=== PATIENT | female | born 1940 | race Caucasian/White ===

== ENCOUNTER 2020-05-02 11:59 | Emergency (ER) | payer MEDICARE, BC, SELFPAY ==
[2020-05-02 12:10] VITALS: BP 231/96; PULSE 57; RESP 16; TEMP 36.8; O2SAT 100
--- NOTE | 2020-05-02 12:17 | ED.EYEPROB ---
HPI - Eye Problem General Chief complaint: Eye Problems Stated complaint: left eye red/swollen Source: patient Mode of arrival: ambulatory Limitations: no limitations History of Present Illness HPI Narrative: Flor Garcia is a 80 yo female with a PMH of HTN, who comes to express care with injection of left eye after rubbing it yesterday. She states her eye was itching and she was rubbing it with her fingernail, now has pain and photophobia to light, her vision is little blurry Her initial blood pressure was really elevated the patient states she is nervous about her eye and concerned about treatment-repeated blood pressure was lowered Related Data Home Medications Medication Instructions Recorded Confirmed aspirin [Adult Low Dose Aspirin] 81 mg PO DAILY 05/02/20 05/02/20 valsartan-hydrochlorothiazide 1 tablet PO DAILY 05/02/20 05/02/20 Allergies Allergy/AdvReac Type Severity Reaction Status Date / Time No Known Allergies Allergy Verified 05/02/20 12:22 Review of Systems Review of Systems: Narrative: CONSTITUTIONAL: Denies fever, chills, sweats. EYES: Mild visual changes, has redness, small amount discharge. ENT: Denies rhinorrhea, congestion, sore throat, otalgia. CARDIOVASCULAR: Denies chest pain, palpitations, edema. RESPIRATORY: Denies dyspnea, wheezing, cough GASTROINTESTINAL: Denies abdominal pain, nausea, vomiting, diarrhea. GENITOURINARY: Denies dysuria, hematuria, abnormal discharge SKIN: Denies rash or itching. NEUROLOGIC: Denies numbness, or focal weakness. PSYCHIATRIC: Denies anxiety or depression. [facility] Past Medical History Medical History HTN (hypertension) Family History Family History Other Hypertension Social History Social History (Updated 05/02/20 @ 12:36 by Jacinda Bernal CNP) Smoking status: Never smoker Alcohol intake: former Comments At time of signature, I agree with nursing past medical, surgical, social and family history. There is no relevant family history pertinent to the presenting complaint. Exam Narrative: Exam Narrative: GENERAL: This is a well-nourished, well-developed patient, in mild distress. HEAD: normocephalic, atraumatic. EYES: Sclera clear/whiteon R, injected and puffy on left. Vision is grossly intact. EARS: External ears normal, Hearing grossly intact. NOSE: External nose normal without nasal discharge, nares without redness, no rhinorrhea. THROAT: Mucous membranes moist, NECK: Neck supple, non-tender CARDIOVASCULAR: Regular rate and rhythm without murmurs, gallops, or rubs. RESPIRATORY: Clear to auscultation. Breath sounds equal bilaterally. No wheezes, rales, or rhonchi. GASTROINTESTINAL: Abdomen soft, non-tender, SKIN: warm, intact with no suspicious lesions or rash, good texture and turgor. NEURO: awake, alert, and oriented to person, place and time. There were no obvious focal neurologic abnormalities. Steady gait EXTREMITIES: Normal range of motion. Favors her right leg. Walks stiffly BACK: Nontender without deformity Course Course Emergency Course: Examination by with Salmeron lamp Started on polymyxin to left eye and warm soaks; sunglasses when outside Vital Signs Vital signs: Vital Signs Temperature 98.3 F 05/02/20 12:10 Pulse Rate 57 L 05/02/20 12:10 Respiratory Rate 16 05/02/20 12:10 Blood Pressure 231/96 H 05/02/20 12:10 Pulse Oximetry 100 05/02/20 12:10 Temperature 98.3 F 05/02/20 12:10 Pulse Rate 57 L 05/02/20 12:10 Respiratory Rate 16 05/02/20 12:10 Blood Pressure 184/96 H 05/02/20 12:34 Pulse Oximetry 100 05/02/20 12:10 Procedures Other Procedure Procedure 1: Other Procedure: Tetracaine drops placed in left eye and fluorescein stain used along with Salmeron lamp. Corneal abrasion to left side of pupil towards the outer canthus-I irrigated and discussed treatment with bry
[2020-05-02 12:34] VITALS: BP 184/96
== END 2020-05-02 12:47 | disposition home or self-care (01) ==
PROVIDERS: Emergency Provider Nurse Practitioner; PCP Internal Medicine
DX: S05.02XA Injury of conjunctiva and corneal abrasion without foreign body, left eye, initial encounter (principal); X58.XXXA Exposure to other specified factors, initial encounter; I10 Essential (primary) hypertension; Z79.82 Long term (current) use of aspirin
CPT/HCPCS: 99213; A9270; G0463

== ENCOUNTER 2023-01-29 10:18 | Emergency (ER) | payer MEDICARE, BC, SELFPAY ==
[2023-01-29 10:27] VITALS: BP 126/85; PULSE 83; RESP 18; TEMP 36.5; O2SAT 98
--- NOTE | 2023-01-29 11:03 | ED.SKABFB ---
HPI - Skin/Abscess/Foreign Bdy General Chief complaint: Upper Respiratory Infection Stated complaint: Insect Bite/Right Arm Time Seen by Provider: 01/29/23 11:03 Source: patient, RN notes reviewed and old records reviewed Mode of arrival: ambulatory Limitations: no limitations History of Present Illness HPI narrative: 82 year old female who presents to express care with complaints of redness irritation with swelling and warmth to right upper arm from spider bite which occurred last evening. Patient reports that area is extremely itchy, warm and is painful to touch. Patient has 9cm X15cm area of redness around bite augustine. Patient denies any difficulty with her breathing or any difficulty with swallowing. Patient reports that she has applied some topical ointment to upper red arm area. MD complaint: other (bug bite with surrounding swelling) Onset (ago): day(s) (1) Severity scale (1-10): 3 Treatments prior to arrival: other (topical ointment to red area on upper right arm) Related Data Home Medications Medication Instructions Recorded Confirmed aspirin 81 mg tablet,delayed 81 mg PO DAILY 05/02/20 05/02/20 release (Adult Low Dose Aspirin) valsartan 80 1 tablet PO DAILY 05/02/20 05/02/20 mg-hydrochlorothiazide 12.5 mg tablet Allergies Allergy/AdvReac Type Severity Reaction Status Date / Time No Known Allergies Allergy Verified 01/29/23 11:02 Review of Systems Review of Systems: CONSTITUTIONAL: Denies fever, chills, or sweats. CARDIOVASCULAR: Denies chest pain, palpitations, or edema. RESPIRATORY: Denies cough or dyspnea. SKIN: Reports redness swelling and warmth to tissue at right upper arm where he was bit by spider MUSCULOSKELETAL: Denies joint pain or myalgia. NEUROLOGIC: Denies headache, numbness, or weakness. All systems reviewed & are unremarkable except as noted in HPI and below PMFSH Past Medical History Medical History COVID-2019 HTN (hypertension) Family History Family History Other Hypertension Social History Social History (Updated 01/30/23 @ 09:32 by Maria M Coppola NP) Smoking status: Never smoker Alcohol intake: former Substance use type: does not use Living arrangements: with family Occupation/Education: retired Gender identity (if verbalized by the patient): Female Comments At time of signature, agree with nursing past medical, surgical, social and family history. There is no relevant family history pertinent to the presenting complaint Exam Narrative: GENERAL: Well-appearing, well-nourished, and in no acute distress. HEAD: Normocephalic, atraumatic. EYES: PERRLA, conjunctivae clear, and EOMI. ENT: Mucous membranes moist. Oropharynx without edema, erythema or lesions. NECK: Supple. No lymphadenopathy CHEST: Clear to auscultation. No respiratory distress.SAO2 98% on room air HEART: Regular rate and rhythm. SKIN: Warm, dry.? Patches of erythema and edema urrounding spider bite to right upper arm with area of redness measuring 9cm by 15 cm which is warm to touch and itchy NEURO:? Alert and oriented x3. PSYCH: Normal mood and affect Course Course Emergency Course: Patient is aware of diagnosis, understands and agrees to treatment plan.? Anticipatory guidance given.? Patient agrees to follow-up as directed and is aware of reasons to seek care at the emergency department. Portions of this record may have been created with voice recognition software Level of Care: Express Care Visit Vital Signs Vital signs: Vital Signs Temperature 36.5 C 01/29/23 10:27 Pulse Rate 83 01/29/23 10:27 Respiratory Rate 18 01/29/23 10:27 Blood Pressure 126/85 01/29/23 10:27 Pulse Oximetry 98 01/29/23 10:27 Oxygen Delivery Room Air 01/29/23 10:27 Temperature 36.5 C 01/29/23 10:27 Pulse Rate 83 01/29/23 10:27
== END 2023-01-29 11:28 | disposition home or self-care (01) ==
PROVIDERS: Emergency Provider Registered Nurse; PCP Internal Medicine
DX: L03.113 Cellulitis of right upper limb (principal); I10 Essential (primary) hypertension; Z86.16 Personal history of COVID-19; Z79.82 Long term (current) use of aspirin
CPT/HCPCS: 99213; G0463

== ENCOUNTER 2023-03-23 10:02 | Emergency (ER) | payer MEDICARE, BC, SELFPAY ==
[2023-03-23 10:12] VITALS: BP 153/70; PULSE 61; RESP 16; TEMP 36.5; O2SAT 98
--- NOTE | 2023-03-23 10:46 | ED.GENADULT ---
HPI - General Adult General Chief complaint: Urogenital-Female Stated complaint: painful urination / Thumb pain Source: patient and RN notes reviewed Mode of arrival: ambulatory History of Present Illness HPI narrative: 83 year old female presents to the [facility] today complaining of a possible urinary tract infection. Patient stated about 4 days ago she developed burning with urination. Patient also states when she is sitting down urinating she feels pain that starts near her bladder and radiates into her thumbs. Patient denies any abdominal pain, flank pain, back pain, fevers, are any blood in her urine. Related Data Home Medications Medication Instructions Recorded Confirmed aspirin 81 mg tablet,delayed 81 mg PO DAILY 05/02/20 03/23/23 release (Adult Low Dose Aspirin) valsartan 80 1 tablet PO DAILY 05/02/20 03/23/23 mg-hydrochlorothiazide 12.5 mg tablet Allergies Allergy/AdvReac Type Severity Reaction Status Date / Time No Known Allergies Allergy Verified 03/23/23 10:07 Review of Systems Review of Systems: CONSTITUTIONAL: Denies fever, chills, or sweats. EYES: Denies visual changes, redness, or discharge. ENT: Denies otalgia and sore throat CARDIOVASCULAR: Denies chest pain, palpitations, or edema. RESPIRATORY: Denies cough or dyspnea. GASTROINTESTINAL: Denies abdominal pain, nausea, vomiting, or diarrhea. GENITOURINARY: Positive for dysuria and negative for hematuria. SKIN: Denies rash or itching. MUSCULOSKELETAL: Denies back pain, joint pain, or myalgia. NEUROLOGIC: Denies headache, numbness, or weakness. Pertinent positives per HPI. [facility], [facility] Past Medical History Medical History COVID-19 2019 HTN (hypertension) Family History Family History Other Hypertension Social History Social History (Updated 01/30/23 @ 09:32 by Maria M Coppola NP) Smoking status: Never smoker Alcohol intake: former Substance use type: does not use Living arrangements: with family Occupation/Education: retired Gender identity (if verbalized by the patient): Female Comments At the time of my signature, I reviewed and agree with the nursing past medical, surgical, social, and family history. There is no relevant family history pertinent to the patient complaint. Exam Narrative: GENERAL: This is a well-nourished, well-developed patient, in no apparent distress. HEAD: normocephalic, atraumatic. EYES: Sclera clear/white. Vision is grossly intact. EARS: External ears normal, auditory canals clear and without drainage, TMs normal without perforation. Hearing grossly intact. NOSE: External nose normal with no obvious nasal discharge, nares without redness, no rhinorrhea. THROAT: Mucous membranes moist, posterior pharynx clear. NECK: Neck supple, non-tender without lymphadenopathy, masses or thyromegaly. CARDIOVASCULAR: Regular rate and rhythm without murmurs, gallops, or rubs. RESPIRATORY: Clear to auscultation. Breath sounds equal bilaterally. No wheezes, rales, or rhonchi. GASTROINTESTINAL: Abdomen soft, non-tender, nondistended. Bowel sounds are active. No hepato-splenomegaly, or palpable masses. No guarding. SKIN: warm, intact with no suspicious lesions or rash, good texture and turgor. NEURO: awake, alert, and oriented to person, place and time. There were no obvious focal neurologic abnormalities. EXTREMITIES: No clubbing, cyanosis, or edema. No joint tenderness, effusion, or edema noted. BACK: Nontender without deformity or crepitus. No flank tenderness. Course Course Level of Care: Express Care Visit Vital Signs Vital signs: Vital Signs Temperature 97.7 F 03/23/23 10:12 Pulse Rate 61 03/23/23 10:12 Respiratory Rate 16 03/23/23 10:12 Blood Pressure 153/70 H 03/23/23 10:12 Pulse Oximetry 98 03/23/23 10:12 Oxygen Delivery Room Air 03/23/23 10
== END 2023-03-23 10:55 | disposition home or self-care (01) ==
PROVIDERS: Emergency Provider Nurse Practitioner Family; PCP Internal Medicine
DX: N39.0 Urinary tract infection, site not specified (principal); I10 Essential (primary) hypertension; Z86.16 Personal history of COVID-19; Z79.82 Long term (current) use of aspirin
CPT/HCPCS: 81003; 87077; 87086; 87186; 99213; G0463